=== PATIENT | male | born 1995 | race Caucasian/White ===

== ENCOUNTER 2018-12-30 08:47 | Emergency (ER) | payer BC ==
[~2018-12-30] VITALS: Ht 190.5 cm; Wt 74.8 kg
[2018-12-30] MEDS ORDERED: CLARITIN10 MG PO (09:07)
[2018-12-30] MEDS ORDERED: PROMETHAZINE HC25 MG PR (10:44)
[2018-12-30] MEDS ORDERED: PROMETHAZINE HC25 M1 PO (10:44)
== END 2018-12-30 10:54 | disposition home or self-care (01) ==
LOC: ED 08:47
DX: R11.2 Nausea with vomiting, unspecified (principal); R19.7 Diarrhea, unspecified; F17.200 Nicotine dependence, unspecified, uncomplicated; D72.829 Elevated white blood cell count, unspecified; Z88.0 Allergy status to penicillin; Z79.899 Other long term (current) drug therapy
CPT/HCPCS: 80053; 83690; 85025; 96361; 96374; 99284-25; J2765; J7030